=== PATIENT | female | born 1970 | race Caucasian/White ===

== ENCOUNTER 2016-08-31 17:01 | Emergency (ER) | payer SELFPAY ==
[2016-08-31] MEDS ORDERED: Ketorolac 30 MG/ML SDV IVPUSH ONE (17:51)
[2016-08-31] MEDS ORDERED: Metoclopramide 10 MG/2 ML SDV IV ONE (17:51)
[2016-08-31] MEDS ORDERED: Sodium Chloride 0.9% 1,000 ML IV ONE (17:53)
[2016-08-31] MEDS ORDERED: diphenhydrAMINE 50 MG/ML SDV IVPUSH ONE (17:54)
--- NOTE | 2016-08-31 18:05 | EDM.PDOC ---
ED HPI HEADACHE COMPLAINT - General Chief Complaint: Headache Stated Complaint: MIGRAINE Time Seen by Provider: 08/31/16 17:25 Source of Information: Reports: Patient History Limitations: Reports: No limitations - History of Present Illness INITIAL COMMENTS - FREE TEXT/NARRATIVE: HISTORY AND PHYSICAL: History of present illness: [45-year-old female with a history of long-term tobacco abuse depression on an antidepressant medicine also with a history of chronic recurrent migraines well known to our emergency medicine service for multiple visits now presents to the emergency department complaining of gradual onset of migraine headache typical for her. Patient states she's had this headache for several days with gradual onset she has some photophobia and nausea. this is typical for her migraine no stiff neck no fevers chills sweats or shaking chills. No vomiting or diarrhea and no other recent illness the Review of systems: As per history of present illness and below otherwise all systems reviewed and negative. Past medical history: As per history of present illness and as reviewed below otherwise noncontributory. Surgical history: As per history of present illness and as reviewed below otherwise noncontributory. Social history: No reported history of drug or alcohol abuse. Family history: As per history of present illness and as reviewed below otherwise noncontributory. Physical exam: Patient resting with her eyes closed well-appearing when addressed she weighs her hand and says hello but keeps her eyes closed HEENT: Atraumatic, normocephalic, pupils reactive, negative for conjunctival pallor or scleral icterus, mucous membranes moist, throat clear, neck supple, nontender, trachea midline. Lungs: Clear to auscultation, breath sounds equal bilaterally, chest nontender. Heart: S1S2, regular, negative for clicks, rubs, or JVD. Abdomen: Soft, nondistended, nontender. Negative for masses or hepatosplenomegaly. Negative for costovertebral tenderness. Pelvis: Stable nontender. Genitourinary: Deferred. Rectal: Deferred. Extremities: Atraumatic, negative for cords or calf pain. Neurovascular unremarkable. Neuro: Awake, alert, oriented. Cranial nerves II through XII unremarkable. Cerebellum unremarkable. Motor and sensory unremarkable throughout. Exam nonfocal. Diagnostics: [] Therapeutics: [] Impression: [] Plan: [Signs and symptoms consistent with gradual onset of migraine headache typical for patient. She is well-appearing and nonfocal neurologically. Patient is very supple neck no evidence of meningismus afebrile no infectious prodrome. Interventions made for migraine including Benadryl Toradol Reglan with IV fluids. Patient is very well-appearing however we will give her some time to achieve maximum therapeutic benefit for interventions and anticipate outpatient followup. No further workup or treatment indicated at this time. Patient agrees with outpatient followup and strict return precautions will be given Definitive disposition and diagnosis as appropriate pending reevaluation and review of above. - Related Data Allergies/ADRs: Allergies Allergy/AdvReac Type Severity Reaction Status Date / Time codeine Allergy Nausea and Verified 08/31/16 17:10 Vomiting Fresh Water Fish Allergy Difficulty Uncoded 07/12/16 15:44 Swallowing Nuts Allergy Difficulty Uncoded 07/12/16 15:44 Swallowing Home Meds: Home Meds Citalopram Hydrobromide [Celexa] 40 mg PO DAILY 10/06/13 [History] buPROPion [Wellbutrin XL] 150 mg PO BID 02/22/15 [History] Albuterol Sulfate [Proair Hfa] 1 puff INH Q4H PRN 08/31/15 [History] Past Medical History - Past Health History Medical/Surgical History: Denies Medical/Surgical History HEENT History: Reports: Other (see below) Other HEENT History: wears glasses Cardiovascular History: Reports: None Respiratory History: Reports: Other (see below) Other Respiratory History: states has "mild emphysema" - uses inhaler 2x's per week - last used 4 days ago Gastrointestinal History: Reports: GERD Other Gastrointestinal History: Heartburn on occasiona not chronic "only in my pregnancies and now if one of my children are 'I have gotten heartburn' " Genitourinary History: Reports: None [employer]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 Endocrine/Metabolic History: Reports: None Hematologic History: Reports: None Immunologic History: Reports: None Oncologic (Cancer) History: Reports: None Dermatologic History: Reports: None - Infectious Disease History Infectious Disease History: Reports: Chicken pox, Measles, Mumps - Past Surgical History Head Surgeries/Procedures: Reports: None HEENT Surgical History: Reports: None Cardiovascular Surgical History: Reports: None GI Surgical History: Reports: Cholecystectomy Other GI Surgeries/Procedures: Lap Verena Female Surgical History: Reports: Hysterectomy, Tubal ligation Endocrine Surgical History: Reports: None Neurological Surgical History: Reports: None Musculoskeletal Surgical History: Reports: None Oncologic Surgical History: Reports: None Dermatological Surgical History: Reports: None Social & Family History - Family History Family Medical History: Noncontributory Respiratory: Reports: COPD - Tobacco Use Smoking Status *Q: Current Every Day Smoker Years of Tobacco use: 30 Packs/Tins Daily: 0.3 Used Tobacco, but Quit: No Second Hand Smoke Exposure: Yes - Caffeine Use Caffeine Use: Reports: Coffee, Soda - Alcohol Use Days Per Week of Alcohol Use: 0 - Recreational Drug Use Recreational Drug Use: No Drug Use in Last 12 Months: No Recreational Drug Type: Reports: Marijuana/Hashish Recreational Drug Use Frequency: Not Used In Over 1 Month ED ROS GENERAL - Review of Systems Review Of Systems: See Below (GI) - Physical Exam Exam: See Below (History of present illness) Course - Vital Signs Last Recorded V/S: Last Vital Signs Temp 36.8 C 08/31/16 17:06 Pulse 89 08/31/16 17:06 Resp 16 08/31/16 17:06 BP 124/76 08/31/16 17:06 Pulse Ox 94 L 08/31/16 17:06 - Orders/Labs/Meds Orders: Active Orders 24 hr Category Date Time Status Sodium Chloride 0.9% [Normal Saline] 1,000 ml Med 08/31/16 17:53 Ordered IV STAT Medication Orders Sodium Chloride (Normal Saline) 1,000 mls @ 999 mls/hr IV STAT ONE Stop: 08/31/16 18:53 Meds: Medications Generic Name Dose Route Start Last Admin Trade Name Freq PRN Reason Stop Dose Admin Sodium Chloride 1,000 mls @ 999 mls/hr 08/31/16 17:53 Normal Saline IV 08/31/16 18:53 STAT ONE Discontinued Medications Generic Name Dose Route Start Last Admin Trade Name Freq PRN Reason Stop Dose Admin Diphenhydramine HCl 25 mg 08/31/16 17:54 Benadryl IVPUSH 08/31/16 17:55 ONETIME ONE Ketorolac Tromethamine 30 mg 08/31/16 17:51 Toradol IVPUSH 08/31/16 17:52 ONETIME ONE Metoclopramide HCl 10 mg 08/31/16 17:51 Reglan IV 08/31/16 17:52 ONETIME ONE Departure - Departure Time of Disposition: 18:05 Disposition: Home, Self-Care 01 Condition: good Clinical Impression: Migraine headache Instructions: Recurrent Migraine Headache, [id number] Forms: ED Department Discharge Additional Instructions: History and findings are consistent with migraine headache which you experience multiple times previously. Rest and drink plenty of fluids. Take an anti- inflammatory medicine such as ibuprofen. You may fine Benadryl helpful but be careful not to exceed dosing recommended on the package. Followup with your DrDarrell tomorrow for reevaluation and further treatment as needed and return immediately for new severe or worsening symptoms - My Orders Last 24 Hours: My Active Orders 08/31/16 17:53 Sodium Chloride 0.9% [Normal Saline] 1,000 ml IV STAT - Assessment/Plan Last 24 Hours: My Active Orders 08/31/16 17:53 Sodium Chloride 0.9% [Normal Saline] 1,000 ml IV STAT
[2016-08-31 19:51] VITALS: BP 120/69
== END 2016-08-31 19:25 | disposition home or self-care (01) ==
LOC: MW.ED 17:01
DX: G43.909 Migraine, unspecified, not intractable, without status migrainosus (principal); K21.9 Gastro-esophageal reflux disease without esophagitis; F32.9 Major depressive disorder, single episode, unspecified; F17.210 Nicotine dependence, cigarettes, uncomplicated; Z79.899 Other long term (current) drug therapy; Z88.5 Allergy status to narcotic agent
CPT/HCPCS: 96374; 96375; 99283; J1200; J1885; J2765; J7040; 99284

== ENCOUNTER 2016-09-27 22:17 | Emergency (ER) | payer SELFPAY ==
--- NOTE | 2016-09-27 22:37 | EDM.PDOC ---
ED HPI GENERAL MEDICAL PROBLEM - General Chief Complaint: General Stated Complaint: CHECK UP HEART MURMUR Time Seen by Provider: 09/27/16 22:33 Source of Information: Reports: Patient - History of Present Illness INITIAL COMMENTS - FREE TEXT/NARRATIVE: HISTORY AND PHYSICAL: History of present illness: [] Patient presents with history of a heart murmur, she had applied for work at [employer] requesting a work-up for the heart murmur prior to appointment Is no fever nausea vomiting diarrhea constipation chest pain shortness breath headache dizziness or palpitation no bowel or urine symptoms Review of systems: As per history of present illness and below otherwise all systems reviewed and negative. Past medical history: As per history of present illness and as reviewed below otherwise noncontributory. Surgical history: As per history of present illness and as reviewed below otherwise noncontributory. Social history: No reported history of drug or alcohol abuse. Family history: As per history of present illness and as reviewed below otherwise noncontributory. Physical exam: HEENT: Atraumatic, normocephalic, pupils reactive, negative for conjunctival pallor or scleral icterus, mucous membranes moist, throat clear, neck supple, nontender, trachea midline. Lungs: Clear to auscultation, breath sounds equal bilaterally, chest nontender. Heart: S1S2, regular, negative for clicks, rubs, or JVD. Chest does have a 2/6 systolic murmur appreciated on the left sternal border Abdomen: Soft, nondistended, nontender. Negative for masses or hepatosplenomegaly. Negative for costovertebral tenderness. Pelvis: Stable nontender. Genitourinary: Deferred. Rectal: Deferred. Extremities: Atraumatic, negative for cords or calf pain. Neurovascular unremarkable. Neuro: Awake, alert, oriented. Cranial nerves II through XII unremarkable. Cerebellum unremarkable. Motor and sensory unremarkable throughout. Exam nonfocal. Diagnostics: [] Therapeutics: [] Referred to cardiology for evaluation and treatment possibly medical clearance for employment Impression: [] 2/6 systolic heart murmur Definitive disposition and diagnosis as appropriate pending reevaluation and review of above. - Related Data Allergies Allergy/AdvReac Type Severity Reaction Status Date / Time codeine Allergy Nausea and Verified 09/27/16 22:29 Vomiting Fresh Water Fish Allergy Difficulty Uncoded 09/27/16 22:29 Swallowing Nuts Allergy Difficulty Uncoded 09/27/16 22:29 Swallowing Home Meds: Home Meds Citalopram Hydrobromide [Celexa] 40 mg PO DAILY 10/06/13 [History] Albuterol Sulfate [Proair Hfa] 1 puff INH Q4H PRN 08/31/15 [History] Past Medical History - Past Health History Medical/Surgical History: Denies Medical/Surgical History HEENT History: Reports: Other (see below) Other HEENT History: wears glasses Cardiovascular History: Reports: None Respiratory History: Reports: Other (see below) Other Respiratory History: states has "mild emphysema" - uses inhaler 2x's per week - last used 4 days ago Gastrointestinal History: Reports: GERD Other Gastrointestinal History: Heartburn on occasiona not chronic "only in my pregnancies and now if one of my children are 'I have gotten heartburn' " Genitourinary History: Reports: None 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 Endocrine/Metabolic History: Reports: None Hematologic History: Reports: None Immunologic History: Reports: None Oncologic (Cancer) History: Reports: None Dermatologic History: Reports: None - Infectious Disease History Infectious Disease History: Reports: Chicken pox, Measles, Mumps - Past Surgical History Head Surgeries/Procedures: Reports: None HEENT Surgical History: Reports: None Cardiovascular Surgical History: Reports: None GI Surgical History: Reports: Cholecystectomy Other GI Surgeries/Procedures: Lap Verena Female Surgical History: Reports: Hysterectomy, Tubal ligation Endocrine Surgical History: Reports: None Neurological Surgical History: Reports: None Musculoskeletal Surgical History: Reports: None Oncologic Surgical History: Reports: None Dermatological Surgical History: Reports: None Social & Family History - Family History Family Medical History: Noncontributory Respiratory: Reports: COPD - Tobacco Use Smoking Status *Q: Current Every Day Smoker Years of Tobacco use: 30 Packs/Tins Daily: 0.3 Used Tobacco, but Quit: No Second Hand Smoke Exposure: Yes - Caffeine Use Caffeine Use: Reports: Coffee, Soda - Alcohol Use Days Per Week of Alcohol Use: 0 - Recreational Drug Use Recreational Drug Use: No Drug Use in Last 12 Months: No Recreational Drug Type: Reports: Marijuana/Hashish Recreational Drug Use Frequency: Not Used In Over 1 Month ED ROS GENERAL - Review of Systems Review Of Systems: ROS reveals no pertinent complaints other than HPI. ED EXAM, GENERAL - Physical Exam Exam: See Below Course - Vital Signs Last Recorded V/S: Last Vital Signs Temp 36.7 C 09/27/16 22:24 Pulse 92 09/27/16 22:24 Resp 19 09/27/16 22:24 BP 133/83 09/27/16 22:24 Pulse Ox 97 09/27/16 22:24 Departure - Departure Time of Disposition: 22:35 Disposition: Home, Self-Care 01 Condition: good Clinical Impression: Murmur, cardiac Forms: ED Department Discharge Additional Instructions: Followup with cardiology for evaluation of the murmur No specific treatment required at this time Referral for cardiology evaluation and recommendations The following information is given to patients seen in the emergency department who are being discharged to home. This information is to outline your options for follow-up care. We provide all patients seen in our emergency department with a follow-up referral. The need for follow-up, as well as the timing and circumstances, are variable depending upon the specifics of your emergency department visit. If you don't have a primary care physician on staff, we will provide you with a referral. We always advise you to contact your personal physician following an emergency department visit to inform them of the circumstance of the visit and for follow-up with them and/or the need for any referrals to a consulting specialist. The emergency department will also refer you to a specialist when appropriate. This referral assures that you have the opportunity for follow-up care with a specialist. All of these measure are taken in an effort to provide you with optimal care, which includes your follow-up. Under all circumstances we always encourage you to contact your private physician who remains a resource for coordinating your care. When calling for follow-up care, please make the office aware that this follow-up is from your recent emergency room visit. If for any reason you are refused follow-up, please contact the [facility] emergency department at and asked to speak to the emergency department charge nurse.
[2016-09-27 23:00] VITALS: BP 127/83
== END 2016-09-27 22:50 | disposition home or self-care (01) ==
LOC: MW.ED 22:17
DX: R01.1 Cardiac murmur, unspecified (principal); K21.9 Gastro-esophageal reflux disease without esophagitis; F32.9 Major depressive disorder, single episode, unspecified; F17.210 Nicotine dependence, cigarettes, uncomplicated; Z88.5 Allergy status to narcotic agent; Z91.013 Allergy to seafood; Z91.018 Allergy to other foods; Z79.899 Other long term (current) drug therapy; Z90.49 Acquired absence of other specified parts of digestive tract; Z90.710 Acquired absence of both cervix and uterus; Z98.51 Tubal ligation status
CPT/HCPCS: 99282

== ENCOUNTER 2017-01-01 11:42 | Emergency (ER) | payer SELFPAY ==
[2017-01-01] MEDS ORDERED: Ketorolac 30 MG/ML SDV IVPUSH ONE (12:00)
[2017-01-01] MEDS ORDERED: Ondansetron 4 MG/2 ML SDV IVPUSH ONE (12:00)
[2017-01-01] MEDS ORDERED: LORazepam 2 MG/ML MDV IVPUSH ONE (12:00)
[2017-01-01] MEDS ORDERED: Sodium Chloride 0.9% 1,000 ML IV ONE (12:00)
--- NOTE | 2017-01-01 12:02 | EDM.PDOC ---
ED HPI GENERAL MEDICAL PROBLEM - General Chief Complaint: General Stated Complaint: PT SAID SHE SPOKE TO NURSE ABOUT IT Time Seen by Provider: 01/01/17 12:00 Source of Information: Reports: Patient History Limitations: Reports: No Limitations - History of Present Illness INITIAL COMMENTS - FREE TEXT/NARRATIVE: History of present illness: 46-year-old female presenting with complaints of migraine. Patient has had migraines with some level of chronicity, sporadically, but not any recently. Patient indicates that this is not the worse when she's had but if it is refractory to OTCs she does seek further medical assistance. Review of systems: As per history of present illness and below otherwise all systems reviewed and negative. Past medical history: As per history of present illness and as reviewed below otherwise noncontributory. Surgical history: As per history of present illness and as reviewed below otherwise noncontributory. Social history: No reported history of drug or alcohol abuse. Family history: As per history of present illness and as reviewed below otherwise noncontributory. Physical exam: HEENT: Atraumatic, normocephalic, pupils reactive, negative for conjunctival pallor or scleral icterus, mucous membranes moist, throat clear, neck supple, nontender, trachea midline. Lungs: Clear to auscultation, breath sounds equal bilaterally, chest nontender. Heart: S1S2, regular, negative for clicks, rubs, or JVD. Abdomen: Soft, nondistended, nontender. Negative for masses or hepatosplenomegaly. Negative for costovertebral tenderness. Pelvis: Stable nontender. Genitourinary: Deferred. Rectal: Deferred. Extremities: Atraumatic, negative for cords or calf pain. Neurovascular unremarkable. Neuro: Awake, alert, oriented. Cranial nerves II through XII unremarkable. Cerebellum unremarkable. Motor and sensory unremarkable throughout. Exam nonfocal. Global assessment is benign save the subjective complaint as noted in history of present illness and some observed photophobia. Diagnostics: [] Therapeutics: [Norflex, Ativan, Toradol, IV fluid, oxygen] Impression: [Migraine headache] Plan: [Discharged with Norflex] Definitive disposition and diagnosis as appropriate pending reevaluation and review of above. migraine Pain Score (Numeric/FACES): 9 - Related Data Allergies Allergy/AdvReac Type Severity Reaction Status Date / Time codeine Allergy Nausea and Verified 01/01/17 11:54 Vomiting Fresh Water Fish Allergy Difficulty Uncoded 01/01/17 11:54 Swallowing Nuts Allergy Difficulty Uncoded 01/01/17 11:54 Swallowing Home Meds: Home Meds Citalopram Hydrobromide [Celexa] 40 mg PO DAILY 10/06/13 [History] Albuterol Sulfate [Proair Hfa] 1 puff INH Q4H PRN 08/31/15 [History] Orphenadrine [Norflex] 100 mg PO BID #28 tab.er 01/01/17 [Rx] traZODone HCl [Trazodone HCl] 1 tab PO QPM 01/01/17 [History] Past Medical History - Past Health History Medical/Surgical History: Denies Medical/Surgical History HEENT History: Reports: Other (See Below) Other HEENT History: wears glasses Cardiovascular History: Reports: None Respiratory History: Reports: Other (See Below) Other Respiratory History: states has "mild emphysema" - uses inhaler 2x's per week - last used 4 days ago Gastrointestinal History: Reports: GERD Other Gastrointestinal History: Heartburn on occasiona not chronic "only in my pregnancies and now if one of my children are 'I have gotten heartburn' " Genitourinary History: Reports: 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 Endocrine/Metabolic History: Reports: None Hematologic History: Reports: None Immunologic History: Reports: None Oncologic (Cancer) History: Reports: None Dermatologic History: Reports: None - Infectious Disease History Infectious Disease History: Reports: Chicken Pox, Measles, Mumps - Past Surgical History Female Surgical History: Reports: Hysterectomy, Tubal Ligation Social & Family History - Family History Family Medical History: Noncontributory Respiratory: Reports: COPD - Tobacco Use Smoking Status *Q: Current Every Day Smoker Years of Tobacco use: 30 Packs/Tins Daily: 0.3 Used Tobacco, but Quit: No Second Hand Smoke Exposure: Yes - Caffeine Use Caffeine Use: Reports: Coffee, Soda Caffeine Use Comment: 2cups/day - Alcohol Use Days Per Week of Alcohol Use: 0 - Recreational Drug Use Recreational Drug Use: No Drug Use in Last 12 Months: No Recreational Drug Type: Reports: Marijuana/Hashish Recreational Drug Use Frequency: Not Used In Over 1 Month ED ROS GENERAL - Review of Systems Review Of Systems: See Below (History of present illness) ED EXAM, GENERAL - Physical Exam Exam: See Below (The history of present illness) Course - Vital Signs Last Recorded V/S: Last Vital Signs Temp 36.6 C 01/01/17 11:56 Pulse 95 01/01/17 11:56 Resp 16 01/01/17 11:56 BP 133/74 01/01/17 11:56 Pulse Ox 95 01/01/17 11:56 - Orders/Labs/Meds Orders: Active Orders 24 hr Category Date Time Status Orphenadrine [Norflex] Med 01/01/17 13:00 Ordered 60 mg IM Q12H Medication Orders Orphenadrine Citrate (Norflex) 60 mg IM Q12H CLYDE Meds: Medications Generic Name Dose Route Start Last Admin Trade Name Freq PRN Reason Stop Dose Admin Orphenadrine Citrate 60 mg 01/01/17 13:00 Norflex IM Q12H CLYDE Discontinued Medications Generic Name Dose Route Start Last Admin Trade Name Freq PRN Reason Stop Dose Admin Sodium Chloride 1,000 mls @ 999 mls/hr 01/01/17 12:00 01/01/17 12:23 Normal Saline IV 01/01/17 13:00 999 mls/hr STAT ONE Administration Ketorolac Tromethamine 30 mg 01/01/17 12:00 01/01/17 12:21 Toradol IVPUSH 01/01/17 12:01 30 mg ONETIME ONE Administration Lorazepam 1 mg 01/01/17 12:00 01/01/17 12:22 Ativan IVPUSH 01/01/17 12:01 1 mg ONETIME ONE Administration Ondansetron HCl 8 mg 01/01/17 12:00 01/01/17 12:19 Zofran IVPUSH 01/01/17 12:01 8 mg ONETIME ONE Administration Departure - Departure Time of Disposition: 13:03 Disposition: Home, Self-Care 01 Condition: Good Clinical Impression: Migraine - Discharge Information Prescriptions: Orphenadrine [Norflex] 100 mg PO BID #28 tab.er Forms: ED Department Discharge Additional Instructions: The following information is given to patients seen in the emergency department who are being discharged to home. This information is to outline your options for follow-up care. We provide all patients seen in our emergency department with a follow-up referral. The need for follow-up, as well as the timing and circumstances, are variable depending upon the specifics of your emergency department visit. If you don't have a primary care physician on staff, we will provide you with a referral. We always advise you to contact your personal physician following an emergency department visit to inform them of the circumstance of the visit and for follow-up with them and/or the need for any referrals to a consulting specialist. The emergency department will also refer you to a specialist when appropriate. This referral assures that you have the opportunity for follow-up care with a specialist. All of these measure are taken in an effort to provide you with optimal care, which includes your follow-up. Under all circumstances we always encourage you to contact your private physician who remains a resource for coordinating your care. When calling for follow-up care, please make the office aware that this follow-up is from your recent emergency room visit. If for any reason you are refused follow-up, please contact the [facility] Emergency Department at and asked to speak to the emergency department charge nurse. Take medication as directed Follow-up with PCP in 1-2 days Return to ED as needed as discussed - My Orders Last 24 Hours: My Active Orders 01/01/17 13:00 Orphenadrine [Norflex] 60 mg IM Q12H - Assessment/Plan Last 24 Hours: My Active Orders 01/01/17 13:00 Orphenadrine [Norflex] 60 mg IM Q12H
[2017-01-01 13:26] VITALS: BP 114/70
== END 2017-01-01 13:24 | disposition home or self-care (01) ==
LOC: MW.ED 11:42
DX: G43.909 Migraine, unspecified, not intractable, without status migrainosus (principal); K21.9 Gastro-esophageal reflux disease without esophagitis; F17.210 Nicotine dependence, cigarettes, uncomplicated; Z91.018 Allergy to other foods; Z88.5 Allergy status to narcotic agent; Z90.710 Acquired absence of both cervix and uterus
CPT/HCPCS: 96361; 96372; 96374; 96375; 99283; J1885; J2060; J2360; J2405; J7040

== ENCOUNTER 2017-01-22 12:09 | Emergency (ER) | payer SELFPAY ==
[2017-01-22 12:23] VITALS: BP 125/75
--- NOTE | 2017-01-22 14:26 | EDM.PDOC ---
ED HPI GENERAL MEDICAL PROBLEM - General Chief Complaint: Lower Extremity Injury/Pain Stated Complaint: RT ANKLE HURTS Time Seen by Provider: 01/22/17 12:20 Source of Information: Reports: Patient - History of Present Illness INITIAL COMMENTS - FREE TEXT/NARRATIVE: HISTORY AND PHYSICAL: History of present illness: [Patient comes to emergency room complaining of right foot and ankle pain. States that she was helping to carry a 150 pound crate when she dropped half of it on her right foot. This occurred at work 1-1/2 weeks ago. She continues to experience pain to her right medial ankle and foot. No numbness or tingling or weakness. She walks with a limp due to the pain. She's been taking tramadol that she has at home which provided some improvement in her discomfort.] Review of systems: As per history of present illness and below otherwise all systems reviewed and negative. Past medical history: As per history of present illness and as reviewed below otherwise noncontributory. Surgical history: As per history of present illness and as reviewed below otherwise noncontributory. Social history: No reported history of drug or alcohol abuse. Family history: As per history of present illness and as reviewed below otherwise noncontributory. Physical exam: HEENT: Atraumatic, normocephalic. Extremities: Mild swelling is appreciated to the top of her right foot and the medial ankle. Pedal pulses are strong. No ecchymosis or erythema. Range of motion is good. Atraumatic, negative for cords or calf pain. Neurovascular unremarkable. Neuro: Awake, alert, oriented. Motor and sensory unremarkable throughout. Exam nonfocal. Diagnostics: [R foot xray, R ankle xray] Impression: [R foot pain] Plan: [Negative foot and ankle x-rays. Recommend anti-inflammatories and follow-up with primary care. 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 She is in agreement with today' s plan all questions are answered and concerns are addressed.] Definitive disposition and diagnosis as appropriate pending reevaluation and review of above. Right Ankle Pain Score (Numeric/FACES): 7 - Related Data Allergies Allergy/AdvReac Type Severity Reaction Status Date / Time codeine Allergy Nausea and Verified 01/22/17 12:22 Vomiting Fresh Water Fish Allergy Difficulty Uncoded 01/22/17 12:22 Swallowing Nuts Allergy Difficulty Uncoded 01/22/17 12:22 Swallowing Home Meds: Home Meds Citalopram Hydrobromide [Celexa] 40 mg PO DAILY 10/06/13 [History] Albuterol Sulfate [Proair Hfa] 1 puff INH Q4H PRN 08/31/15 [History] traZODone HCl [Trazodone HCl] 50 mg PO QPM 01/01/17 [History] traMADol [Ultram] 50 mg PO ASDIRECTED PRN 01/22/17 [History] Past Medical History - Past Health History Medical/Surgical History: Denies Medical/Surgical History HEENT History: Reports: Other (See Below) Other HEENT History: wears glasses Cardiovascular History: Reports: None Respiratory History: Reports: Other (See Below) Other Respiratory History: states has "mild emphysema" - uses inhaler 2x's per week Gastrointestinal History: Reports: GERD Other Gastrointestinal History: Heartburn on occasiona not chronic "only in my pregnancies and now if one of my children are 'I have gotten heartburn' " Genitourinary History: Reports: None 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 Endocrine/Metabolic History: Reports: None Hematologic History: Reports: None Immunologic History: Reports: None Oncologic (Cancer) History: Reports: None Dermatologic History: Reports: None - Infectious Disease History Infectious Disease History: Reports: Chicken Pox - Past Surgical History Head Surgeries/Procedures: Reports: None HEENT Surgical History: Reports: None Respiratory Surgical History: Reports: None Female Surgical History: Reports: Hysterectomy, Tubal Ligation Social & Family History - Family History Family Medical History: Noncontributory Respiratory: Reports: COPD - Tobacco Use Smoking Status *Q: Current Every Day Smoker Years of Tobacco use: 30 Packs/Tins Daily: 0.2 Used Tobacco, but Quit: No Second Hand Smoke Exposure: Yes - Caffeine Use Caffeine Use: Reports: Coffee Caffeine Use Comment: 3cups/day - Alcohol Use Days Per Week of Alcohol Use: 0 - Recreational Drug Use Recreational Drug Use: No Drug Use in Last 12 Months: No Recreational Drug Type: Reports: Marijuana/Hashish Recreational Drug Use Frequency: Not Used In Over 1 Month Review of Systems - Review of Systems Review Of Systems: ROS reveals no pertinent complaints other than HPI. ED EXAM, GENERAL - Physical Exam Exam: See Below Course - Vital Signs Last Recorded V/S: Last Vital Signs Temp 97.7 F 01/22/17 12:15 Pulse 64 01/22/17 12:15 Resp 18 01/22/17 12:15 BP 125/75 01/22/17 12:15 Pulse Ox 97 01/22/17 12:15 - Orders/Labs/Meds Orders: Active Orders 24 hr Category Date Time Status Ankle Min 3V Rt [CR] Stat Exams 01/22/17 12:31 Taken Foot 2V Rt [CR] Stat Exams 01/22/17 12:31 Taken Departure - Departure Time of Disposition: 14:25 Disposition: Home, Self-Care 01 Condition: Good Clinical Impression: Right foot pain - Discharge Information Instructions: Foot Contusion, [id number] Referrals: PCP,None [Primary Care Provider] - Forms: ED Department Discharge Additional Instructions: The following information is given to patients seen in the emergency department who are being discharged to home. This information is to outline your options for follow-up care. We provide all patients seen in our emergency department with a follow-up referral. The need for follow-up, as well as the timing and circumstances, are variable depending upon the specifics of your emergency department visit. If you don't have a primary care physician on staff, we will provide you with a referral. We always advise you to contact your personal physician following an emergency department visit to inform them of the circumstance of the visit and for follow-up with them and/or the need for any referrals to a consulting specialist. The emergency department will also refer you to a specialist when appropriate. This referral assures that you have the opportunity for follow-up care with a specialist. All of these measure are taken in an effort to provide you with optimal care, which includes your follow-up. Under all circumstances we always encourage you to contact your private physician who remains a resource for coordinating your care. When calling for follow-up care, please make the office aware that this follow-up is from your recent emergency room visit. If for any reason you are refused follow-up, please contact the [facility] emergency department at and asked to speak to the emergency department charge nurse. [facility] [address] [place] [id number] Follow-up with your primary care provider at the clinic listed above in 48-72 hours. Rest, ice, elevate, gentle stretching. [id number] analgesics as needed for discomfort. Return to ER as needed as discussed. - My Orders Last 24 Hours: My Active Orders 01/22/17 12:31 Ankle Min 3V Rt [CR] Stat Foot 2V Rt [CR] Stat - Assessment/Plan Last 24 Hours: My Active Orders 01/22/17 12:31 Ankle Min 3V Rt [CR] Stat Foot 2V Rt [CR] Stat
--- NOTE | 2017-01-23 13:36 | CR ---
EXAM DATE: 01/22/17 PATIENT'S AGE: 46 Patient: KUNAL JEAN Facility: [place], [place] Site . Site : 1970 Study: XRay Extremity ankle [id number]/27/2017 1:22:39 PM Ordering Physician: Doctor Corcoran Final Report: INDICATION: Dropped heavy object on foot 1 week ago. Pain and swelling. TECHNIQUE: Three views of the right ankle. COMPARISON: Today`s right foot x-rays. FINDINGS: No soft tissue swelling, fracture or other abnormality. IMPRESSION: Negative right ankle. Dictated by Bulmaro Nickerson MD @ Jan 22 2017 2:19PM (Electronic Signature) Report Signed by Proxy. HERON
--- NOTE | 2017-01-23 13:37 | CR ---
EXAM DATE: 01/22/17 PATIENT'S AGE: 46 Patient: KUNAL JEAN Facility: [place], [place] Site . Site : 1970 Study: XRay Extremity foot [id number]/27/2017 1:23:01 PM Ordering Physician: Doctor Corcoran Final Report: INDICATION: Right foot injury. TECHNIQUE: AP and lateral views of the right foot. COMPARISON: Today`s right ankle x-rays. FINDINGS: No obvious soft tissue swelling, fracture or subluxation. IMPRESSION: Negative right foot. Dictated by Bulmaro Nickerson MD @ Jan 22 2017 2:19PM (Electronic Signature) Report Signed by Proxy. HERON
== END 2017-01-22 14:32 | disposition home or self-care (01) ==
LOC: MW.ED 12:09
DX: M79.671 Pain in right foot (principal); K21.9 Gastro-esophageal reflux disease without esophagitis; G43.909 Migraine, unspecified, not intractable, without status migrainosus; F17.210 Nicotine dependence, cigarettes, uncomplicated; F32.9 Major depressive disorder, single episode, unspecified; Z88.5 Allergy status to narcotic agent; Z91.018 Allergy to other foods; Z79.899 Other long term (current) drug therapy; Z90.710 Acquired absence of both cervix and uterus
CPT/HCPCS: 73610-26-RT; 73610-RT; 73620-26-RT; 73620-RT; 99283

== ENCOUNTER 2017-02-10 18:34 | Emergency (ER) | payer SELFPAY ==
[2017-02-10 18:59] VITALS: BP 129/88
[2017-02-10] MEDS ORDERED: Sodium Chloride 0.9% 1,000 ML IV ONE (19:14)
[2017-02-10] MEDS ORDERED: Sodium Chloride 0.9% 2.5 ML Syringe FLUSH PRN (19:14)
[2017-02-10] MEDS ORDERED: Sodium Chloride 0.9% 10 ML Syringe FLUSH PRN (19:14)
--- NOTE | 2017-02-10 19:18 | EDM.PDOC ---
ED HPI GENERAL MEDICAL PROBLEM - General Chief Complaint: Abdominal Pain Stated Complaint: PT HAS PAIN ON RT SIDE OF BODY Time Seen by Provider: 02/10/17 19:07 - History of Present Illness INITIAL COMMENTS - FREE TEXT/NARRATIVE: HISTORY AND PHYSICAL: History of present illness: Patient's 46-year-old white female history migraine headache who presents with concern of right-sided abdominal pain she's had prior hysterectomy and cholecystectomy she still does have her appendix started this morning is got progressively worse she's had nausea without vomiting she denies fever chills denies history of urolithiasis she's been seen in our ER approximately 20 times over the last 2 years for variety of issues. She denies any other concern Review of systems: As per history of present illness and below otherwise all systems reviewed and negative. Past medical history: As per history of present illness and as reviewed below otherwise noncontributory. Surgical history: As per history of present illness and as reviewed below otherwise noncontributory. Social history: No reported history of drug or alcohol abuse. Family history: As per history of present illness and as reviewed below otherwise noncontributory. Physical exam: HEENT: Atraumatic, normocephalic, pupils reactive, negative for conjunctival pallor or scleral icterus, mucous membranes moist, throat clear, neck supple, nontender, trachea midline. Lungs: Clear to auscultation, breath sounds equal bilaterally, chest nontender. Heart: S1S2, regular, negative for clicks, rubs, or JVD. Abdomen: Soft, nondistended, no localized tenderness no rebound no guarding Negative for masses or hepatosplenomegaly. Negative for costovertebral tenderness. Pelvis: Stable nontender. Genitourinary: Deferred. Rectal: Deferred. Extremities: Atraumatic, negative for cords or calf pain. Neurovascular unremarkable. Neuro: Awake, alert, oriented. Cranial nerves II through XII unremarkable. Cerebellum unremarkable. Motor and sensory unremarkable throughout. Exam nonfocal. Diagnostics: CBC CMP UA amylase lipase urine drug screen CT abdomen and pelvis Therapeutics: Normal saline 1 L bolus Zofran 4 mg IV Impression: #1 right-sided flank/abdominal pain Definitive disposition and diagnosis as appropriate pending reevaluation and review of above. abdomen Pain Score (Numeric/FACES): 10 - Related Data Allergies Allergy/AdvReac Type Severity Reaction Status Date / Time codeine Allergy Nausea and Verified 02/10/17 18:51 Vomiting Fresh Water Fish Allergy Difficulty Uncoded 02/10/17 18:51 Swallowing Nuts Allergy Difficulty Uncoded 02/10/17 18:51 Swallowing Home Meds: Home Meds Citalopram Hydrobromide [Celexa] 40 mg PO DAILY 10/06/13 [History] Albuterol Sulfate [Proair Hfa] 1 puff INH Q4H PRN 08/31/15 [History] traZODone HCl [Trazodone HCl] 100 mg PO QPM 01/01/17 [History] traMADol [Ultram] 50 mg PO ASDIRECTED PRN 01/22/17 [History] Past Medical History - Past Health History Medical/Surgical History: Denies Medical/Surgical History HEENT History: Reports: Impaired Vision, Other (See Below) Other HEENT History: wears glasses Cardiovascular History: Reports: None Respiratory History: Reports: Other (See Below) Other Respiratory History: states has "mild emphysema" - uses inhaler 2x's per week Gastrointestinal History: Reports: GERD Other Gastrointestinal History: Heartburn on occasiona not chronic "only in my pregnancies and now if one of my children are 'I have gotten heartburn' " Genitourinary History: Reports: None 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 Endocrine/Metabolic History: Reports: None Hematologic History: Reports: None Immunologic History: Reports: None Oncologic (Cancer) History: Reports: None Dermatologic History: Reports: None - Infectious Disease History Infectious Disease History: Reports: Chicken Pox - Past Surgical History Head Surgeries/Procedures: Reports: None HEENT Surgical History: Reports: None Respiratory Surgical History: Reports: None GI Surgical History: Reports: Cholecystectomy Female Surgical History: Reports: Hysterectomy, Tubal Ligation Social & Family History - Family History Family Medical History: Noncontributory Respiratory: Reports: COPD - Tobacco Use Smoking Status *Q: Current Every Day Smoker Years of Tobacco use: 30 Packs/Tins Daily: 1 Used Tobacco, but Quit: No Second Hand Smoke Exposure: Yes - Caffeine Use Caffeine Use: Reports: Coffee Caffeine Use Comment: 3cups/day - Alcohol Use Days Per Week of Alcohol Use: 0 - Recreational Drug Use Recreational Drug Use: No Drug Use in Last 12 Months: No Recreational Drug Type: Reports: Marijuana/Hashish Recreational Drug Use Frequency: Not Used In Over 1 Month ED ROS GENERAL - Review of Systems Review Of Systems: ROS reveals no pertinent complaints other than HPI. ED EXAM, GENERAL - Physical Exam Exam: See Below (See dictation) Course - Vital Signs Last Recorded V/S: Last Vital Signs Temp 36.8 C 02/10/17 18:50 Pulse 79 02/10/17 18:50 Resp 18 02/10/17 18:50 BP 129/88 02/10/17 18:50 Pulse Ox 98 02/10/17 18:50 - Orders/Labs/Meds Orders: Active Orders 24 hr Category Date Time Status Abdomen Pelvis wo Cont [CT] Stat Exams 02/10/17 19:14 Taken CULTURE URINE [RM] Stat Lab 02/10/17 19:08 Received DRUG SCREEN, URINE [URCHEM] Stat Lab 02/10/17 20:48 Ordered Sodium Chloride 0.9% [Saline Flush] Med 02/10/17 19:14 Active 10 ml FLUSH ASDIRECTED PRN Sodium Chloride 0.9% [Saline Flush] Med 02/10/17 19:14 Active 2.5 ml FLUSH ASDIRECTED PRN Saline Lock Insert [OM.PC] Stat Oth 02/10/17 19:13 Ordered Medication Orders Sodium Chloride (Saline Flush) 10 ml FLUSH ASDIRECTED PRN PRN Reason: Keep Vein Open Sodium Chloride (Saline Flush) 2.5 ml FLUSH ASDIRECTED PRN PRN Reason: Keep Vein Open Labs: Laboratory Tests 02/10/17 02/10/17 02/10/17 Range/Units 19:08 20:02 20:02 WBC 8.31 (4.0-11.0) K/uL RBC 4.45 (4.30-5.90) M/uL Hgb 15.6 (12.0-16.0) g/dL Hct 45.4 (36.0-46.0) % MCV 102.0 H (80.0-98.0) fL MCH 35.1 H (27.0-32.0) pg MCHC 34.4 (31.0-37.0) g/dL RDW Std Deviation 45.1 (28.0-62.0) fl RDW Coeff of Josefina 12 (11.0-15.0) % Plt Count 263 (150-400) K/uL MPV 9.80 (7.40-12.00) fL Neut % (Auto) 55.0 (48.0-80.0) % Lymph % (Auto) 36.7 (16.0-40.0) % Ogle % (Auto) 5.3 (0.0-15.0) % Eos % (Auto) 2.6 (0.0-7.0) % Baso % (Auto) 0.4 (0.0-1.5) % Neut # (Auto) 4.6 (1.4-5.7) K/uL Lymph # (Auto) 3.1 H (0.6-2.4) K/uL Ogle # (Auto) 0.4 (0.0-0.8) K/uL Eos # (Auto) 0.2 (0.0-0.7) K/uL Baso # (Auto) 0.0 (0.0-0.1) K/uL Nucleated RBC % 0.0 /100WBC Nucleated RBCs # 0 K/uL Sodium 141 (136-146) mmol/L Potassium 3.9 (3.5-5.1) mmol/L Chloride 108 (98-110) mmol/L Carbon Dioxide 27 (21-31) mmol/L BUN 13 (6.0-23.0) mg/dL Creatinine 0.7 (0.6-1.5) mg/dL Est Cr Clr Drug Dosing 96.01 mL/min Estimated GFR (MDRD) > 60.0 ml/min Glucose 100 (60-110) mg/dL Calcium 9.2 (8.8-10.8) mg/dL Total Bilirubin 0.3 (0.1-1.5) mg/dL AST 19 (5-40) IU/L ALT 18 (8-54) IU/L Alkaline Phosphatase 72 (40-150) Total Protein 6.8 (6.0-8.0) g/dL Albumin 3.9 (3.5-5.0) g/dL Globulin 2.9 (2.0-3.5) g/dL Albumin/Globulin Ratio 1.3 (1.3-2.8) Amylase 20 (10-90) U/L Lipase 20 (7-80) U/L Urine Color YELLOW Urine Appearance CLEAR Urine pH 5.5 (5.0-8.0) Ur Specific [address] 1.015 (1.001-1.035) Urine Protein NEGATIVE (NEGATIVE) mg/dL Urine Glucose (UA) NEGATIVE (NEGATIVE) mg/dL Urine Ketones NEGATIVE (NEGATIVE) mg/dL Urine Occult Blood SMALL H (NEGATIVE) Urine Nitrite NEGATIVE (NEGATIVE) Urine Bilirubin NEGATIVE (NEGATIVE) Urine Urobilinogen 0.2 (<2.0) EU/dL Ur Leukocyte Esterase NEGATIVE (NEGATIVE) Urine RBC 0-3 (0-2/HPF) Urine WBC 0-2 (0-5/HPF) Ur Epithelial Cells RARE (NONE-FEW) Urine Bacteria RARE (NEGATIVE) Meds: Medications Generic Name Dose Route Start Last Admin Trade Name Freq PRN Reason Stop Dose Admin Sodium Chloride 10 ml 02/10/17 19:14 Saline Flush FLUSH ASDIRECTED PRN Keep Vein Open Sodium Chloride 2.5 ml 02/10/17 19:14 Saline Flush FLUSH ASDIRECTED PRN Keep Vein Open Discontinued Medications Generic Name Dose Route Start Last Admin Trade Name Freq PRN Reason Stop Dose Admin Sodium Chloride 1,000 mls @ 999 mls/hr 02/10/17 19:14 02/10/17 19:36 Normal Saline IV 02/10/17 20:14 999 mls/hr STAT ONE Administration Ketorolac Tromethamine 30 mg 02/10/17 19:19 02/10/17 19:38 Toradol IVPUSH 02/10/17 19:20 30 mg ONETIME ONE Administration Ondansetron HCl 4 mg 02/10/17 19:19 02/10/17 19:37 Zofran IVPUSH 02/10/17 19:20 4 mg ONETIME ONE Administration Departure - Departure Time of Disposition: 21:04 Disposition: Home, Self-Care 01 Condition: Good Clinical Impression: Abdominal pain - Discharge Information Referrals: PCP,None [Primary Care Provider] - Forms: ED Department Discharge Additional Instructions: The following information is given to patients seen in the emergency department who are being discharged to home. This information is to outline your options for follow-up care. We provide all patients seen in our emergency department with a follow-up referral. The need for follow-up, as well as the timing and circumstances, are variable depending upon the specifics of your emergency department visit. If you don't have a primary care physician on staff, we will provide you with a referral. We always advise you to contact your personal physician following an emergency department visit to inform them of the circumstance of the visit and for follow-up with them and/or the need for any referrals to a consulting specialist. The emergency department will also refer you to a specialist when appropriate. This referral assures that you have the opportunity for followup care with a specialist. All of these measure are taken in an effort to provide you with optimal care, which includes your followup. Under all circumstances we always encourage you to contact your private physician who remains a resource for coordinating your care. When calling for followup care, please make the office aware that this follow-up is from your recent emergency room visit. If for any reason you are refused follow-up, please contact the [facility] emergency department at and asked to speak to the emergency department charge nurse. Follow-up primary medical doctor 1-2 days push fluids clear liquids as directed return as needed as discussed - My Orders Last 24 Hours: My Active Orders 02/10/17 19:08 CULTURE URINE [RM] Stat 02/10/17 19:13 Saline Lock Insert [OM.PC] Stat 02/10/17 19:14 Abdomen Pelvis wo Cont [CT] Stat Sodium Chloride 0.9% [Saline Flush] 10 ml FLUSH ASDIRECTED PRN Sodium Chloride 0.9% [Saline Flush] 2.5 ml FLUSH ASDIRECTED PRN 02/10/17 20:48 DRUG SCREEN, URINE [URCHEM] Stat - Assessment/Plan Last 24 Hours: My Active Orders 02/10/17 19:08 CULTURE URINE [RM] Stat 02/10/17 19:13 Saline Lock Insert [OM.PC] Stat 02/10/17 19:14 Abdomen Pelvis wo Cont [CT] Stat Sodium Chloride 0.9% [Saline Flush] 10 ml FLUSH ASDIRECTED PRN Sodium Chloride 0.9% [Saline Flush] 2.5 ml FLUSH ASDIRECTED PRN 02/10/17 20:48 DRUG SCREEN, URINE [URCHEM] Stat
[2017-02-10] MEDS ORDERED: Ketorolac 30 MG/ML SDV IVPUSH ONE (19:19)
[2017-02-10] MEDS ORDERED: Ondansetron 4 MG/2 ML SDV IVPUSH ONE (19:19)
[2017-02-10 20:33] LABS: CHLORIDE,CL 108 mmol/L (98-110); SODIUM,NA 141 mmol/L (136-146)
--- NOTE | 2017-02-13 10:03 | CT ---
EXAM DATE: 02/10/17 PATIENT'S AGE: 46 Patient: KUNAL JEAN Facility: [place], [place] Site . Site : 1970 Study: CT Abdomen/Pelvis WO CONT [id number]/15/2017 8:00:07 PM Ordering Physician: Suhas Faith Final Report: INDICATION: RIGHT SIDED FLANK PAIN RADIATING TO RLQ STARTING THIS MORNING WITH NAUSEA AND FREQUENT URINATION CT ABDOMEN AND PELVIS WITHOUT CONTRAST TECHNIQUE: Multidetector CT imaging was performed through the abdomen and pelvis without intravenous contrast administration. Coronal and sagittal reconstructions were generated. COMPARISON: 10/28/2015 CT abdomen and pelvis. FINDINGS: Lower chest: Minimal basilar lung atelectasis or scarring. Liver: Within normal limits. Gallbladder and bile ducts: Status post cholecystectomy, as before. No biliary dilation identified. Pancreas: Unremarkable. Spleen: Normal. Adrenals: No nodules or masses. Kidneys, ureters, and urinary bladder: No urinary tract stones identified No renal masses or hydronephrosis. Nondistended urinary bladder with resultant mild wall prominence. No bladder mass or definite pathologic wall thickening. Gastrointestinal tract: Normal caliber bowel without wall thickening. The appendix is normal. Vascular structures: Normal for age. Peritoneum: No free air, abscess, or significant free fluid. Lymph nodes: No pathologically enlarged nodes identified. Reproductive organs: Status post hysterectomy, as before. No pelvic masses. Bones: Degenerative disc disease at L2-3. IMPRESSION: 1. No acute abnormality identified. No cause for the patient`s symptoms is evident. 2. Status post cholecystectomy and hysterectomy. NABIL GAMBLE MD [employer] [facility] Dictated by Hank Gamble MD @ 02/10/2017 8:48:05 PM Dictated by: Hank Gamble MD @ 02/10/2017 20:52:52 (Electronic Signature) Report Signed by Proxy. HERON
== END 2017-02-10 21:15 | disposition home or self-care (01) ==
LOC: MW.ED 18:34
DX: R10.9 Unspecified abdominal pain (principal); K21.9 Gastro-esophageal reflux disease without esophagitis; F17.210 Nicotine dependence, cigarettes, uncomplicated; Z90.49 Acquired absence of other specified parts of digestive tract; Z90.710 Acquired absence of both cervix and uterus; Z88.5 Allergy status to narcotic agent; Z91.018 Allergy to other foods; Z79.899 Other long term (current) drug therapy
CPT/HCPCS: 36415; 74176; 80053; 80305; 81001; 82150; 83690; 85025; 87086; 96361; 96374; 96375; 99284; J1885; J2405; J7040; 99283

== ENCOUNTER 2017-03-24 12:21 | Emergency (ER) | payer SELFPAY ==
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
[2017-03-24 13:21] VITALS: BP 124/78
== END 2017-03-24 13:29 | disposition home or self-care (01) ==
LOC: MW.ED 12:21
DX: J01.00 Acute maxillary sinusitis, unspecified (principal); F17.210 Nicotine dependence, cigarettes, uncomplicated; Z88.5 Allergy status to narcotic agent; Z79.899 Other long term (current) drug therapy
CPT/HCPCS: 99282; 99283

== ENCOUNTER 2017-04-05 10:37 | Emergency (ER) | payer BC ==
[2017-04-05 10:58] VITALS: BP 116/75
[2017-04-05] MEDS ORDERED: Ketorolac 60 MG/2 ML SDV IM ONE (11:01)
[2017-04-05] MEDS ORDERED: Diphtheria,Pertussis(Acell),Tetanus Vaccine 0.5 ML Syringe IM ONE (11:05)
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
--- NOTE | 2017-04-05 12:27 | CR ---
EXAMINATION: Bilateral knees HISTORY: Pain COMPARISON: None TECHNIQUE: 3 views bilaterally FINDINGS: There is no acute osseous abnormality, dislocation, or fracture. Bone mineralization and andrzej int spaces appear normal. No soft tissue swelling or joint effusion. IMPRESSION: 1. No acute osseous abnormality.
--- NOTE | 2017-04-05 12:30 | CR ---
EXAMINATION: Right ankle HISTORY: Pain COMPARISON: 01/22/2017 TECHNIQUE: 3 views FINDINGS/IMPRESSION: There is no acute osseous abnormality, dislocation, or fracture. Bone mineraliza tion and joint spaces appear normal. Tiny plantar calcaneal spur. Early degenerative changes noted wi thin the midfoot.
== END 2017-04-05 12:52 | disposition home or self-care (01) ==
LOC: MW.ED 10:37
DX: S90.01XA Contusion of right ankle, initial encounter (principal); S80.02XA Contusion of left knee, initial encounter; S80.01XA Contusion of right knee, initial encounter; X50.1XXA Overexertion from prolonged static or awkward postures, initial encounter; F32.9 Major depressive disorder, single episode, unspecified; F17.210 Nicotine dependence, cigarettes, uncomplicated; Z79.899 Other long term (current) drug therapy; Z88.5 Allergy status to narcotic agent; Z91.013 Allergy to seafood; Z91.018 Allergy to other foods; W03.XXXA Other fall on same level due to collision with another person, initial encounter; Z23 Encounter for immunization
CPT/HCPCS: 73562; 73610; 90471; 90715; 96372; 99283; J1885